=== PATIENT | male | born 1980 | race Caucasian/White ===

== ENCOUNTER → 2020-12-12 | Outpatient (CLI) | payer BC, OTHER | LOC: KOH-I 11:25 | DX: M79.671 Pain in right foot (principal) | CPT/HCPCS: 73610; 73630 ==

== ENCOUNTER → 2021-06-14 | Outpatient (CLI) | payer BC ==
[~2021-06-14] VITALS: Ht 177.8 cm; Wt 97.5 kg
== END ==
LOC: EROP 14:55
DX: U07.1 COVID-19 (principal); Z23 Encounter for immunization
CPT/HCPCS: 96365